=== PATIENT | male | born 1960 | race Caucasian/White ===

== ENCOUNTER 2018-05-21 02:39 | Outpatient (CLI) | payer BC, SELFPAY ==
[2018-05-21 11:06] LABS: Cholesterol 228 mg/dL (50-200); HDL Cholesterol 54 mg/dL (40-60); LDL CHOLESTEROL 144 mg/dL (<100); Triglyceride 120 mg/dL (30-150)
[2018-05-22 09:54] LABS: PSA, Screening 0.8 ng/ml (0-3.5)
== END 2018-05-21 02:59 ==
PROVIDERS: PCP Emergency Medicine; Visit Provider Emergency Medicine
DX: Z00.00 Encounter for general adult medical examination without abnormal findings (principal); Z12.5 Encounter for screening for malignant neoplasm of prostate; Z13.220 Encounter for screening for lipoid disorders
CPT/HCPCS: 36415; 80061; 83721; 84153

== ENCOUNTER 2019-12-21 14:12 | Outpatient (REF) | payer BC, SELFPAY ==
[2019-12-21 13:25] LABS: Anion Gap 4.2 mmol/L (3-11); BUN 19 mg/dL (7-18); CO2 31.8 mmol/L (21.0-32.0); CREATININE 0.92 mg/dL (0.70-1.30); Calcium 8.9 mg/dL (8.5-10.1); Chloride 104 mmol/L (98-107); GGT 27 U/L (15-85); Glucose 96 mg/dL (74-106); Potassium 4.7 mmol/L (3.5-5.1); Sodium 140 mmol/L (136-145)
== END 2019-12-21 14:32 ==
LOC: LBN 14:12
PROVIDERS: PCP Emergency Medicine; Visit Provider Emergency Medicine
DX: I10 Essential (primary) hypertension (principal)
CPT/HCPCS: 80048; 82977

== ENCOUNTER 2023-02-18 15:39 | Outpatient (REF) | payer BC, SELFPAY ==
[2023-02-18 15:31] LABS: HCT 44.2 % (40.0-50.0); HGB 14.9 g/dL (13.5-17.5); MCH 30.5 pg (27.0-33.0); MCHC 33.7 % (32.0-36.0); MCV 90 fL (80-95); MPV 10.3 fL (8.0-11.0); Platelet Count 236 10^3/uL (130-400); RBC 4.89 10^6/uL (4.36-5.78); RDW 12.3 % (11.8-14.1); RDW-SD 40.8 fL; WBC 5.25 10^3/uL (4.4-10.8)
[2023-02-18 16:14] LABS: Anion Gap 9.7 mmol/L (3-11); BUN 15 mg/dL (7-18); CO2 26.3 mmol/L (21.0-32.0); CREATININE 0.9 mg/dL (0.70-1.30); Calcium 9.3 mg/dL (8.5-10.1); Calculated LDL 157 mg/dL (<100); Chloride 103 mmol/L (98-107); Cholesterol 261 mg/dL (<200); Estimated GFR 97.78 (mL/min/1.73m2); Glucose 97 mg/dL (74-106); HDL Cholesterol 63 mg/dL (40-60); Sodium 139 mmol/L (136-145); Triglyceride 207 mg/dL (<150)
[2023-02-18 17:15] LABS: Hemoglobin A1C 5.4 % (<5.7)
[2023-02-20 11:27] LABS: Lyme Ab w Rflx to Lyme Confirm Positive (Negative)
[2023-02-20 14:57] LABS: Lyme IgG Ab Positive (Negative); Lyme IgM Ab Positive (Negative)
[2023-02-21 15:18] LABS: Anaplasma phagocytophilum Negative (Negative); B. miyamotoi PCR Negative (Negative); Babesia divergens/MO-1 Negative (Negative); Babesia duncani Negative (Negative); Babesia microti Negative (Negative); Ehrlichia chaffeensis Negative (Negative); Ehrlichia ewingii/canis Negative (Negative); Ehrlichia muris eauclairensis Negative (Negative)
== END 2023-02-18 15:40 | disposition home or self-care (01) ==
LOC: LBN 15:39
PROVIDERS: PCP Nurse Practitioner Family; Visit Provider Nurse Practitioner Family
DX: Z13.1 Encounter for screening for diabetes mellitus (principal); Z13.220 Encounter for screening for lipoid disorders; W57.XXXA Bitten or stung by nonvenomous insect and other nonvenomous arthropods, initial encounter
CPT/HCPCS: 80048; 80061; 85027; 86617; 87798; 83036; 86618

== ENCOUNTER 2024-10-29 06:51 | Day surgery (SDC) | payer BC, SELFPAY ==
[2024-10-29 07:18] VITALS: BP 164/106; PULSE 83; RESP 16; TEMP 36.4; O2SAT 100
[2024-10-29] MEDS: Lactated Ringers 1,000 ML 80 ML IV (07:38)
--- NOTE | 2024-10-29 08:08 | W.ANESPRE ---
General Info Date of Service Date Performed: 10/29/24 Height: 5 ft 6 in Weight: 76.3 kg Body Mass Index (BMI): 27.1 Surgical Procedure: Operation Date: 10/29/24 08:05 Proposed Procedure Side Surgeon p Colonoscopy Mayco Gonzalez MD Meds Allergies and Home Medications Allergies Allergy/AdvReac Type Severity Reaction Status Date / Time No Known Allergies Allergy Verified 10/29/24 07:13 Home Medication ?Medication ?Instructions ?Recorded None 12/06/14 bisacodyl 5 mg tablet,delayed 5 mg PO ONCE #4 tabs 10/07/24 release (Dulcolax (bisacodyl)) polyethylene glycol 3350 17 17 g PO ONCE #238 grams 10/07/24 gram/dose oral powder Current Visit Medications: Current Medications Generic Name Dose Route Start Last Admin Trade Name Freq PRN Reason Stop Dose Admin Ringer's Solution 1,000 mls @ 80 mls/hr 10/29/24 06:00 10/29/24 07:38 IV 10/29/24 23:59 80 mls/hr INFUSION JESSE Administration IV Miscellaneous Supplies 1 each 10/29/24 06:00 Iv Access IV 10/29/24 23:59 DIRECTED JESSE Sodium Chloride 0 ml 10/29/24 06:00 Normal Saline Flush 10 Ml Syr IV 10/29/24 23:59 PRN PRN Sodium Chloride 0 ml 10/29/24 06:00 Normal Saline 10 Ml Vial IJ 10/29/24 23:59 DIRECTED PRN Sterile Water 0 ml 10/29/24 06:00 Water,Injection,Sterile 10 Ml Vial IJ 10/29/24 23:59 DIRECTED PRN PFSH Active Problems Active Problems: Problem Status Onset Code Seborrheic keratosis Acute L82.1 White coat syndrome with high blood pressure but without hypertension Acute R03.0 Tubular adenoma of colon Acute ~10/05/20 D12.6 Carcinoma of sigmoid colon Acute C18.7 Surgical History Surgical History (Updated 10/28/24 @ 09:45 by Luda Abdi RN) H/O colonoscopy Tobacco Smoking/Tobacco Use Status: Never Passive smoking exposure: Yes Second hand exposure: Yes Alcohol Alcohol Intake: current Alcohol intake frequency: a few times a week Alcohol type: beer Substance Use Substance use: Never Substance use type: former substance user and marijuana Vital Signs and Lab Results Vital Signs Most Recent Vital Signs in EMR: Most Recent Vital Signs Temp Pulse Resp BP Pulse Ox 36.4 C L 83 16 164/106 H 100 10/29/24 07:18 10/29/24 07:18 10/29/24 07:18 10/29/24 07:18 10/29/24 07:18 Anesthesia Assessment and Plan Anesthesia History Personal History: No History of Anesthesia Complications Family History: No Family History of Anesthesia Complications Exercise Tolerance Exercise Tolerance: Metabolic Equivalents>4 Pertinent Negatives Pertinent Negatives: No Symptoms of GERD, No Major Cardiovascular Symptoms or Complaints and No Major Pulmonary Symptoms or Complaints Cardiac & Pulmonary Exam Cardiac Exam: Normal S1/S2 Heart Sounds Pulmonary Exam: Clear Bilateral Breath Sounds Implantable Cardiac Device Does patient have a Pacemaker or an ICD?: No Airway Exam Known Difficult Airway: No Mallampati Class: 1 Mouth Opening: Normal (> 3cm) Thyromental Distance: Greater than 3 cm Neck Range of Motion: Full ROM Neck Circumference: Normal Teeth Condition: Normal Dentition ASA Classification ASA Score: ASA 2 Emergency Case?: No NPO Status NPO Status: NPO Clears >2 hours, Solids >8 hours Anesthesia Plan Resuscitation Status: Full Code Anesthesia Technique: General Anesthesia Airway Planned: Natural Airway Monitors Used: Standard Monitors
[2024-10-29 08:10] VITALS: BMI 27.1
[2024-10-29 08:45] VITALS: BP 123/93; PULSE 71; RESP 14; TEMP 36.7; O2SAT 98
--- NOTE | 2024-10-29 08:55 | BOWEL_PTH ---
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
--- NOTE | 2024-10-29 09:06 | W.COLOREPORT ---
Date of service: 10/29/24 Time of Service: 09:06 Colonoscopy Report Procedure Description: PROCEDURES PERFORMED: 1. 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 He has had one surveillance since which showed no regrowth but found simple adenoma. He has no symptoms. FINDINGS: Normal terminal ileum. The tatoo in the distal sigmoid was easily found - no evidence of recurrent polyp anywhere there or nearby. Polyps: In the proximal rectum, an isolated, flat 2-3mm polyp was removed with cold forceps. No other polyps. There is mild internal and external hemorrhoid disease and a relatively prominent fibroepithelial skin tag at the dentate line. I biopsied this tag to confirm benign histology of it. There were a couple of diverticular changes isolated to the sigmoid colon. There is no stricture or active inflammation. SURVEILLANCE interval/FOLLOW-UP: Repeat in 3 - 5 years. If polyp is simple adenoma or hyperplastic, then I would say 5 years because of the cancer history. If advanced polyp, then repeat in 3 years. SPECIMENS: Yes EBL: Minimal COMPLICATIONS: None QUALITY of prep: Excellent Procedure in detail: The patient gave written consent and was in agreement with the indications, the potential risks as well as the benefits of the procedure. They were taken to the endoscopy suite and laid in the left lateral decubitus position. A timeout was performed and anesthesia was administered which was tolerated well. I started the procedure. Digital rectal and visual examination was performed and grossly within normal limits. A well-lubricated flexible colonoscope was then introduced and passed without any notable difficulty all the way to the cecum identified by the ileocecal valve and the appendiceal orifice. The terminal ileum was deeply intubated and looked normal. The scope was then slowly withdrawn with the above-noted findings. The patient tolerated the procedure well and was taken to the PACU in hemodynamically stable condition.
--- NOTE | 2024-10-29 09:11 | W.PM.DSUDISC ---
Date of service: 10/29/24 Discharge Plan Disposition Patient Disposition: Home Condition: Good Discharge Details Attending Provider: Mayco Gonzalez Primary Care Provider: Bulmaro Krishna Home Meds and New Rx's Prescriptions: No Action bisacodyl [Dulcolax (bisacodyl)] 5 mg tablet,delayed release (DR/EC) 5 mg PO ONCE Qty: 4 0RF Rx Instructions: Take per colonoscopy instructions provided by ordering providers office polyethylene glycol 3350 17 gram/dose powder 17 g PO ONCE Qty: 238 0RF Rx Instructions: Take per colonoscopy instructions provided by ordering providers office none Discharge Instructions Additional Instructions: FINDINGS: A tiny polyp was found and removed. It will get tested, but nothing to worry about. The previous site with the tatoo was again easily found. Looks perfect. Mild hemorrhoid disease and diverticular changes are extremely common, benign, and nothing needs to be done about those findings. REPEAT colonoscopy in 3-5 years depending on the type of polyp. Stand Alone Forms: Anesthesia Discharge Inst., Colonoscopy Post Instructions, [facility] [place] ([facility]) Activity:: Activity as Tolerated Diet:: As Tolerated Discharge Orders Discharge Orders: Discharge Order (Routine); Ordered 10/29/24 Ordered By: Mayco Gonzalez
--- NOTE | 2024-10-29 09:13 | W.ANESPOSTOP ---
Postoperative Evaluation Date, Time and Location Date Performed: 10/29/24 Time Performed: 09:10 Patient Location: Day Surgery Unit Vital Signs Most Recent Imported Vital Signs: Most Recent Vital Signs Temp Pulse Resp BP Pulse Ox 36.7 C 71 14 123/93 H 98 10/29/24 08:45 10/29/24 08:45 10/29/24 08:45 10/29/24 08:45 10/29/24 08:45 Pain Score Most Recent Pain Score: Most Recent Pain Score Pain Level 0 10/29/24 08:45 Assessment Mental Status: Awake (Alert & Oriented to Patient Baseline) Airway and Respiratory Function: Patent airway with normal (patient baseline) respiratory exam Cardiovascular Function: Hemodynamically Stable Hydration Status: Adequately Hydrated Nausea & Vomiting: No Nausea or Vomiting Pain: Pt. Denies Any Pain Peripheral Nerve Block: Patient did not receive a nerve block
[2024-10-29 09:15] VITALS: BP 147/89; PULSE 63; RESP 14; TEMP 36.6; O2SAT 97
== END 2024-10-29 09:38 | disposition home or self-care (01) ==
PROVIDERS: PCP Nurse Practitioner Family; Visit Provider Student in an Organized Health Care Education/Training Program
PROC: 0DJD8ZZ Inspection of Lower Intestinal Tract, Via Natural or Artificial Opening Endoscopic (ICD-10-PCS; CPT 45378; principal; 2024-10-29 08:00)
DX: Z12.11 Encounter for screening for malignant neoplasm of colon (principal); Z85.038 Personal history of other malignant neoplasm of large intestine; K57.30 Diverticulosis of large intestine without perforation or abscess without bleeding; K64.8 Other hemorrhoids; K62.1 Rectal polyp; K62.89 Other specified diseases of anus and rectum
CPT/HCPCS: 45380; 88305; J2003; J2704

== ENCOUNTER 2024-11-08 04:35 | Outpatient (CLI) | payer BC, SELFPAY ==
[2024-11-08 13:12] LABS: ALT 25 U/L (16-63); AST 16 U/L (15-37); Albumin 3.8 g/dL (3.4-5.0); Alkaline Phosphatase 61 U/L (46-116); Anion Gap 8.8 mmol/L (3-11); BUN 14 mg/dL (7-18); Bilirubin, Total 0.4 mg/dL (0.2-1.0); CO2 27.2 mmol/L (21.0-32.0); Calcium 8.7 mg/dL (8.5-10.1); Calculated LDL 149 mg/dL (<100); Chloride 105 mmol/L (98-107); Cholesterol 235 mg/dL (<200); Estimated GFR 100.06 (mL/min/1.73m2); Glucose 107 mg/dL (74-106); HDL Cholesterol 58 mg/dL (>or=40); Potassium 3.9 mmol/L (3.5-5.1); Sodium 141 mmol/L (136-145); Total Protein 7.2 g/dL (6.4-8.2); Triglyceride 142 mg/dL (<150)
[2024-11-08 13:34] LABS: Hemoglobin A1C 5.4 % (<5.7)
[2024-11-08 18:05] LABS: PSA, Screening 0.8 ng/mL (<=4.5)
== END 2024-11-08 04:36 | disposition home or self-care (01) ==
LOC: LOS 04:35
PROVIDERS: PCP Nurse Practitioner Family; Visit Provider Nurse Practitioner Family
DX: C18.7 Malignant neoplasm of sigmoid colon (principal); Z13.220 Encounter for screening for lipoid disorders; Z12.5 Encounter for screening for malignant neoplasm of prostate; Z13.1 Encounter for screening for diabetes mellitus
CPT/HCPCS: 36415; 80053; 80061; 84153; 83036